=== PATIENT | male | born 1960 | race Caucasian/White ===

== ENCOUNTER → 2021-01-25 | Outpatient (CLI) | payer OTHER ==
[~2021-01-25] MED LIST: CELE50CA PO; CITA20TA6 PO; LISD30CA5 PO; LISI5TAB15 PO; METO-239 PO; OMEP20CA16 PO
--- NOTE | 2021-01-25 13:53 | RAD ---
EXAM: AP and lateral views of the lumbar spine DATE: 01/25/2021 9:04 AM INDICATION: Reason: LOW BACK PAIN. / Spl. Instructions: / History: COMPARISON: No Prior FINDINGS: 5 nonrib-bearing lumbar-type vertebral bodies. Vertebral body heights are preserved. Mild L4-5 disc h eight loss. Small anterior endplate osteophytes. Moderate facet degenerative changes L3-4, L4-5 and L 5-S1. No acute fracture. Moderate colonic stool content. IMPRESSION: 1. Multilevel spondylosis as above 2. Negative acute fracture or subluxation. Electronically signed by: Riky Albright MD (01/25/2021 1:51 PM) SARAH
== END ==
LOC: RAD 08:51
PROVIDERS: ATTEND Family Medicine
DX: Z02.71 Encounter for disability determination (principal); M47.817 Spondylosis without myelopathy or radiculopathy, lumbosacral region; M25.78 Osteophyte, vertebrae; M51.26 Other intervertebral disc displacement, lumbar region
CPT/HCPCS: 72100